=== PATIENT | female | born 1985 | race Caucasian/White ===

== ENCOUNTER 2019-10-19 04:12 | Inpatient (IN) | payer BC ==
[2019-10-19] MEDS ORDERED: OXYTOCIN/LR 20 UNIT/1,000 ML BAG IV ONE (04:46)
[2019-10-19] MEDS ORDERED: PENICILLIN 5 MU in NA CHLORIDE 0.9% 100 ML IV ONE (04:50)
[2019-10-19] MEDS ORDERED: MEPERIDINE HCL 25 MG/0.5 ML IV PRN (04:50)
[2019-10-19] MEDS ORDERED: METHYLERGONOVINE 0.2MG/ML AMP IM PRN (04:50)
[2019-10-19] MEDS ORDERED: BUTORPHANOL 1 MG/ML INJ IV PRN (04:50)
[2019-10-19] MEDS ORDERED: CARBOPROST TROME 250 MCG/ML IM PRN (04:50)
[2019-10-19] MEDS ORDERED: PROMETHAZINE 25 MG/ML VIAL IM PRN (04:50)
[2019-10-19] MEDS ORDERED: Ringers Lactate 1,000 ML IV PRN (04:50)
[2019-10-19] MEDS ORDERED: Ringers Lactate 1,000 ML IV SCH (05:00)
[2019-10-19] MEDS ORDERED: OXYTOCIN/LR 20 UNIT/1,000 ML BAG IV SCH ×2 (05:00→16:00)
[2019-10-19 05:09] VITALS: BMI 28.3
[2019-10-19 05:15] LABS: Urine Appearance CLOUDY; Urine Bilirubin NEGATIVE (NEG); Urine Blood NEGATIVE (NEG); Urine Color YELLOW; Urine Glucose NEGATIVE (NEG); Urine Protein NEGATIVE (NEG); Urine Urobilinogen 0.2 mg/dL (0.2-1.0)
[2019-10-19 05:16] LABS: Urine Microscopic Reflex ORDER UMIC
[2019-10-19 05:18] LABS: Absolute Lymphocytes (CBC) 1.5 K/uL (0.7-4.9); Basophils % 0.4 % (0-1.3); Hematocrit 35.7 % (36.0-45.0); Lymphocytes % 22.3 % (15.3-44.8); MPV 10.8 fL (7.6-11.3); RBC Red Blood Cell Count 4.01 M/uL (3.86-4.86)
[2019-10-19 05:48] LABS: Urine Amorphous Sediment 2+ /HPF (NONE SEEN); Urine Bacteria <20 /HPF (<20); Urine Culture Reflex Order REFLEXED; Urine RBC NONE SEEN /HPF (NONE SEEN)
[2019-10-19] MEDS ORDERED: FENTANYL CITR 100 MCG/2 ML IV ONE (07:44)
[2019-10-19] MEDS ORDERED: ROPIVACAINE HCL 100 ML IV PRN (07:44)
[2019-10-19] MEDS ORDERED: ROPIVACAINE HCL 2 MG/ML 100ML IV ONE (07:47)
[2019-10-19] MEDS ORDERED: LIDOCAINE 1% MPF 30 ML VIAL ONE (08:56)
[2019-10-19] MEDS ORDERED: PENICILLIN 2.5 MU in NA CHLORIDE 0.9% 100 ML IV SCH (09:00)
--- NOTE | 2019-10-19 11:52 | PREOPHP ---
Date of Admission: 10/19/2019 History Of Present Illness: A 34-year-old primigravida, 39 weeks, rh positive, immune to Rubella. P ositive beta strep screen. Patient has received her first dose of penicillin over 2 hours ago FHTs n ormal reactive. Vital Signs normal. Labor talk given. The patient is a good to make possibly 2.5 c m. Baby is well applied at -1 almost 0 station. 60-70% effaced. Rupture of membranes, clear fluid. The patient will attempt natural childbirth but she knows she can change her mind at any time and re quested Stadol IV, or epidural. Anticipate delivery sometime later today. DENISSE/SETH Voice ID: [id number]
[2019-10-19] MEDS ORDERED: ROPIVACAINE HCL 20 ML ONE (12:52)
[2019-10-19] MEDS ORDERED: BUPIVACAINE 0.25% PF 10 ML VIAL ONE (13:38)
[2019-10-19] MEDS ORDERED: FENTANYL CITR 100 MCG/2 ML ONE (13:38)
[2019-10-19] MEDS ORDERED: DOCUSATE NA/SENNA CONC 1 TAB PO PRN (15:17)
[2019-10-19] MEDS ORDERED: BISACODYL 10 MG RECTAL SUPP RECT PRN (15:17)
[2019-10-19] MEDS ORDERED: DIPHENHYDRAMINE 25 MG TAB/CAP PO PRN (15:17)
[2019-10-19] MEDS ORDERED: Oxycodone HCl/Acetaminophen 1 TAB TAB PO PRN ×2 (15:17)
[2019-10-19] MEDS ORDERED: ACETAMINOPHEN 500 MG TAB PO PRN (15:17)
--- NOTE | 2019-10-19 17:04 | PN ---
Patient is now a good 4 cm, 90% effaced, 0 station. Jeffery regularly. She has had Stadol 1 mg, is requesting epidural. I think it is very reasonable at this point. We will try to make sure she does not get too numb and run the maintenance at 10. It will probably be set on 12, but we will move it to 10 if it is set on 12. Full discussion with patient and family. I think we are getting ready to get into the active phase soon. DENISSE/SETH Voice ID: [id number] Report ID: [id number]
[2019-10-19] MEDS: METHYLERGONOVINE 0.2 MG TAB PO PRN ×2 (17:10→21:02)
--- NOTE | 2019-10-19 17:43 | PN ---
Subjective: Patient has just received her epidural. She is much more comfortable. She is now 6 cm, 90% to almost 100% effaced, 0 station. We will hook her back up to the monitor. She is on 20 kailash units of Pitocin. She can move her legs, so she is not overdosed with the epidural at this point. W e will check her again in an hour and hopefully will start making more rapid progress. DENISSE/SETH Voice ID: [id number] Report ID: [id number]
[2019-10-19 23:16] LABS: RPR (Rapid Plasma Reagin) NON-REACT (NON-REACT)
--- NOTE | 2019-10-19 23:31 | OP ---
Surgeon: Javier Pagan MD Description Of Procedure: This is a 34-year-old primigravida, 39 weeks, followed antepartum without complications. Rh positive, immune to rubella, positive beta strep screen. 2.5 cm this morning when examined, alexander regularly, rupture of membranes, clear fluid. The patient initially received Stadol 1 mg IV, subsequently received epidural anesthesia by a nurse burn center nurse. This is not very e ffective, so Dr. Aviles came back and did a spinal block with fentanyl, which was effective. Second stage of 15 to 20 minutes spontaneous vaginal delivery of an estimated 6 pounds plus female, cord ar ound the shoulder, but not around the neck. Apgars 9 and 9. Second-degree laceration sustained from pushing, repaired with 2-0 chromic. Leoneltze delivery of the placenta, which was inspected and note d to be intact and normal. Mild uterine hypotonus, 0.2 mg of Methergine IM as well as IV drip Pitoci n and massage. Estimated blood loss 450 mL. The patient received a total of 3 doses of penicillin d uring the labor. Tolerated all procedures well. Final Diagnoses: Term uterine , 39 weeks. Vaginal delivery. Spinal block anesthesia. Mil d uterine hypertonus. DENISSE/BRANDONL Voice ID: [id number] Report ID: [id number]
[2019-10-20] MEDS: METHYLERGONOVINE 0.2 MG TAB PO PRN ×2 (01:02→05:01)
[2019-10-20] MEDS: IBUPROFEN 600 MG TAB PO PRN ×3 (02:03→16:40)
[2019-10-20 16:49] VITALS: BP 126/79; TEMP 98
[2019-10-22 05:08] LABS: HBsAG Nonreactive (Nonreactive)
== END 2019-10-20 17:35 | disposition home or self-care (01) | DRG 807 ==
LOC: 2ND-WC 04:12
PROVIDERS: ADMIT Specialist; ATTEND Specialist
PROC: 10E0XZZ Delivery of Products of Conception, External Approach (ICD-10-PCS; principal; 2019-10-19)
PROC: 0KQM0ZZ Repair Perineum Muscle, Open Approach (ICD-10-PCS; 2019-10-19)
DX: O70.1 Second degree perineal laceration during delivery (principal); Z37.0 Single live birth; O69.2XX0 Labor and delivery complicated by other cord entanglement, with compression, not applicable or unspecified; O99.824 Streptococcus B carrier state complicating childbirth; O62.2 Other uterine inertia; Z3A.39 39 weeks gestation of pregnancy
CPT/HCPCS: 36415; 81003; 81015; 85014; 85025; 86592; 86901; 87077; 87086; 87088; 87186; 87340; J0595; J2210; J2550; J2590; J2795; J3010; J7120

== ENCOUNTER 2021-05-09 04:22 | Inpatient (IN) | payer BC, OTHER ==
--- OUTSIDE RECORDS SUMMARY | 2021-05-09 04:28 | XMS REPORT | Continuity of Care Document ---
:1985 Author Organization [facility] t Address [address] [place] [address] [address]. [address] [place] [address] Care Team Providers Name Role Phone Yolanda Todd Attending Clinician Ayad Jett MD Attending Clinician Nurse, Urgent Care Attending Clinician Unavailable Doctor Unassigned, Name Attending Clinician Unavailable Radiology Attending Clinician Unavailable Ayad Jett MD Admitting Clinician Problems This patient has no known problems. Allergies, Adverse Reactions, Alerts This patient has no known allergies or adverse reactions. Medications This patient has no known medications. Procedures This patient has no known procedures. Encounters Start End Encounter Admission Attending Care Care Encounter Source Date/Time Date/Time Type Type Clinicians Facility Department ID 2021-01-19 2021-01-20 Emergency Leanne Goldstein Yolanda [facility] [id number] 20:19:00 00:15:00 Anila Jett [id number] [place] [id number] [place] [id number] 2021-01-19 2021-01-19 Nurse NurseAram [facility] [id number] 19:40:49 19:55:49 Visit Urgent Care [facility] [id number] [place] [id number] [facility] [id number] [address] 2021-01-19 2021-01-19 Letter Doctor LENO [id number] 00:00:00 00:00:00 (Out) Unass[facility]LL howe [id number] [place] [facility] [id number] 2020-12-12 2020-12-12 [facility] Radiology [facility] [id number] 10:51:05 23:59:00 Encounter Demetri [id number] [place] [id number] [place] [id number] Results This patient has no known results.
[2021-05-09] MEDS ORDERED: METHYLERGONOVINE 0.2MG/ML AMP IM PRN (04:34)
[2021-05-09] MEDS ORDERED: MEPERIDINE HCL 25 MG/ML SYR IV PRN (04:34)
[2021-05-09] MEDS ORDERED: PROMETHAZINE INJ 25 MG/ML AMP IM PRN (04:34)
[2021-05-09] MEDS ORDERED: Ringers Lactate 1,000 ML IV PRN (04:34)
[2021-05-09] MEDS ORDERED: BUTORPHANOL 1 MG/ML INJ IV PRN (04:34)
[2021-05-09] MEDS ORDERED: OXYTOCIN/LR 20 UNIT/1,000 ML BAG IV SCH (05:00)
[2021-05-09] MEDS ORDERED: Ringers Lactate 1,000 ML IV SCH (05:00)
[2021-05-09 05:07] LABS: Absolute Lymphocytes (CBC) 1.9 K/uL (0.7-4.9); Basophils % 0.5 % (0-1.3); Hematocrit 39.8 % (36.0-45.0); Lymphocytes % 29.3 % (15.3-44.8); MPV 11.6 fL (7.6-11.3); RBC Red Blood Cell Count 4.52 M/uL (3.86-4.86)
[2021-05-09 05:07] LABS: Urine Appearance CLOUDY (Clear); Urine Bilirubin NEGATIVE (Negative); Urine Blood NEGATIVE (Negative); Urine Color YELLOW (Yellow); Urine Glucose NEGATIVE (Negative); Urine Protein NEGATIVE (Negative); Urine Urobilinogen 0.2 mg/dL (0.2-1.0); Urine pH 7.5 (5.0-7.0)
[2021-05-09 05:10] VITALS: BMI 27.8
[2021-05-09 05:10] LABS: Urine Microscopic Reflex ORDER UMIC
[2021-05-09 05:38] LABS: Urine Amorphous Sediment 3+ /HPF (NONE SEEN); Urine Bacteria <20 /HPF (<20); Urine RBC NONE SEEN /HPF (NONE SEEN); Urine Urothelial Cells <5 /HPF (NONE SEEN)
[2021-05-09] MEDS ORDERED: FENTANYL CITR 100 MCG/2 ML IV ONE (10:07)
[2021-05-09] MEDS ORDERED: ROPIVACAINE HCL 0.2% 20ML AMP IV ONE (10:07)
[2021-05-09] MEDS ORDERED: ROPIVACAINE HCL 100 ML EP SCH (10:15)
--- NOTE | 2021-05-09 11:04 | PREOPHP ---
Date of Admission: 05/09/2021 History Of Present Illness: A 35-year-old, 2, para 1, 39 weeks gestation, for induction. Pr os and cons of this thoroughly discussed prior to admission. Family History: Mother, paternal grandmother, and father with hypertension. Mother and maternal gra ndmother, myocardial infarctions. Father with stroke. Father, mother, and grandmother with differen t type of cancers. Past Surgical History: The patient had an eye surgery. Nerve palsy in the past, but otherwise no damon rgery. Allergies: ALLERGIC TO CODEINE, PREDNISONE, AND CEPHALOSPORINS. Social History: Does not smoke. Physical Examination: HEENT: Clear. Pupils equal, round, reactive to light and accommodation. Conjunctivae well perfused . No oral, lingual, or buccal lesions. Chest and Lungs: Clear. Heart: Without murmurs, thrills, heaves, or rubs. Breasts: Without masses on previous visits. Extremities: Clear. Pelvic: The patient is 3 to 3.5 cm, vertex, -1 station, rupture of membranes, clear fluid. FHTs nor mal, reactive. Labor talk given. Assessment And Plan: She has those allergies mentioned. Anticipate delivery sometime later today. The patient will be receiving epidural when she gets more active labor. DENISSE/SETH Voice ID: [id number]
[2021-05-09] MEDS: METHYLERGONOVINE 0.2 MG TAB PO SCH ×3 (13:13→21:00)
[2021-05-10] MEDS ORDERED: DOCUSATE NA 100 MG CAP PO PRN (07:09)
[2021-05-10 13:10] VITALS: BP 117/69; TEMP 98.8
[2021-05-10 20:57] LABS: RPR (Rapid Plasma Reagin) NON-REACT (NON-REACT)
[2021-05-12 20:19] LABS: HBsAG Nonreactive (Nonreactive)
--- NOTE | 2021-05-14 14:54 | OP ---
Surgeon: Javier Pagan MD This is a 35-year-old 2, para 1, 39 weeks gestation, followed antepartum without complication s. Rh positive, immune to Rubella. Negative stress. Admitted for labor induction, 3 cm on admissio n. Rupture of membranes, clear fluid. At approximately 4.5 to 5, patient requested and received epi dural anesthesia, which gave excellent effect during remainder of labor and delivery. Second stage o f about 15 minutes. Spontaneous vaginal delivery of a 6 pounds 12 ounces female. Loose nuchal cord x1. Apgars 9 and 9. Second-degree laceration, simulating episiotomy where previous laceration had b een with her first delivery. Repaired with 2-0 chromic. Schultze delivery of the placenta, which wa s inspected and noted to be intact and normal. Less than 300 cc blood loss. The patient tolerated a ll procedures well. Final Diagnoses: Term intrauterine at 39 weeks, labor induction, vaginal delivery, epidura l anesthesia. DENISSE/SETH Voice ID: [id number] Report ID: [id number]
== END 2021-05-10 13:30 | disposition home or self-care (01) | DRG 807 ==
LOC: 2ND-WC 04:27
PROVIDERS: ADMIT Specialist; ATTEND Specialist
PROC: 10E0XZZ Delivery of Products of Conception, External Approach (ICD-10-PCS; principal; 2021-05-09)
PROC: 0KQM0ZZ Repair Perineum Muscle, Open Approach (ICD-10-PCS; 2021-05-09)
PROC: 10907ZC Drainage of Amniotic Fluid, Therapeutic from Products of Conception, Via Natural or Artificial Opening (ICD-10-PCS; 2021-05-09)
PROC: 3E033VJ Introduction of Other Hormone into Peripheral Vein, Percutaneous Approach (ICD-10-PCS; 2021-05-09)
DX: O70.1 Second degree perineal laceration during delivery (principal); Z37.0 Single live birth; Z3A.39 39 weeks gestation of pregnancy; Z20.822 Contact with and (suspected) exposure to COVID-19
CPT/HCPCS: 36415; 81003; 81015; 85025; 86592; 86901; 87340; J0595; J2210; J2550; J2590; J2795; J3010; J7120; U0003